=== PATIENT | male | born 1995 | race Hispanic/Latino ===

== ENCOUNTER 2020-01-14 06:28 | Day surgery (SDC) | payer OTHER ==
[2020-01-08 09:08] LABS: BASOPHILS % (AUTO) 1.3 % (0.0-5.0); EOSINOPHILS % (AUTO) 4.5 % (0.0-8.0); HEMATOCRIT 42.2 % (42-54); LYMPHOCYTES % (AUTO) 41.8 % (21.0-51.0); MEAN CORPUSCULAR HEMOGLOBIN 27.1 pg (27.0-33.0); MEAN CORPUSCULAR HGB CONC 33.4 g/dL (32.0-36.0); MEAN CORPUSCULAR VOLUME 81.2 fL (79-99); MONOCYTES % (AUTO) 8.7 % (3.0-13.0); NEUTROPHILS % (AUTO) 43.5 % (40.0-77.0); PLATELET COUNT (AUTO) 265 K/uL (130-400); RED CELL DISTRIBUTION WIDTH 11.9 % (11.0-15.5); WHITE BLOOD COUNT (AUTO) 5.5 K/uL (4.8-10.8)
[2020-01-08 09:24] LABS: CREATININE 1.2 mg/dL (0.5-1.5); POTASSIUM 4.4 mmol/L (3.5-5.1)
[2020-01-11 13:53] VITALS: BP 117/68
[2020-01-14] VITALS (17 sets, daily range): BP systolic 99–135; BP diastolic 43–82
[~2020-01-14] VITALS: Ht 179.1 cm; Wt 96.2 kg
[~2020-01-14 06:28] MED LIST: ACET-2247 PO; CEFAZOLIN SODIUM 1 GM VIAL IVP SCH; NAPR-1174 PO
[2020-01-14] MEDS ORDERED: LACTATED RINGERS 1000ML 1,000 ML IV ONE (07:43)
[2020-01-14] MEDS ORDERED: CEFAZOLIN SODIUM 1 GM VIAL ONE (08:08)
[2020-01-14] MEDS ORDERED: ONDANSETRON HCL 4 MG/2 ML VIAL ONE ×2 (08:41→10:15)
[2020-01-14] MEDS ORDERED: SUCCINYLCHOLINE CHLORIDE 20 MG/ML 10 ML VIAL ONE (08:41)
[2020-01-14] MEDS ORDERED: LIDOCAINE PF 2% 5ML ABBOJECT ONE (08:41)
[2020-01-14] MEDS ORDERED: DEXAMETHASONE SOD PHOSPHATE 10MG/ML 1ML VIAL ONE ×2 (08:41→10:14)
[2020-01-14] MEDS ORDERED: NEOSTIGMINE 5MG/5ML SYR IV ONE (08:42)
[2020-01-14] MEDS ORDERED: GLYCOPYRROLATE 1 MG/5 ML SYRINGE ONE (08:42)
[2020-01-14] MEDS ORDERED: PROPOFOL 10 MG/ML 20ML VIAL IV ONE (08:42)
[2020-01-14] MEDS ORDERED: ROCURONIUM 10MG/1ML SYR 10 MG/ML ML ONE (08:42)
[2020-01-14] MEDS ORDERED: MIDAZOLAM HCL 1 MG/ML 2ML VIAL ONE (08:42)
[2020-01-14] MEDS ORDERED: FENTANYL CITRATE PF 50 MCG/1 ML 2ML VIAL ONE ×2 (08:43→12:15)
[2020-01-14] MEDS ORDERED: ROPIVACAINE 0.5% 5MG/ML 30ML IJ ONE ×2 (09:14→09:15)
[2020-01-14] MEDS ORDERED: IBUP-2070 PO (12:36)
[2020-01-14] MEDS ORDERED: HYDR-4457 PO (12:36)
[2020-01-14] MEDS ORDERED: CEPH-578 PO (12:36)
[2020-01-14] MEDS ORDERED: MEPERIDINE-PF 25 MG/ML SYG ONE (13:00)
--- NOTE | 2020-01-14 13:40 | NUR ---
POST OP RECEIVED PT BACK FROM PACU. S/P RIGHT KNEE ACL. PT AWAKE AND ALERT,NO DISTRESS NOTED. VS STABLE. PLAN OF CARE DISCUSS WITH PATIENT. NEUROVASCULAR CHECKS WNL. . CALL LIGHT WITHIN REACH
--- NOTE | 2020-01-14 14:15 | NUR ---
dc pt dc home via wc, no distress noted. pt denied any pain or discomforts. pt has cruthes from home already . dc intructions reinforced at this time with pt and mom, prescriptions x 3 given to pts mom. right knee dressing dry and intact, neurovascular checks wnl.
== END 2020-01-14 14:15 | disposition home or self-care (01) ==
LOC: DAH 06:28
PROVIDERS: ATTEND Orthopaedic Surgery
DX: S83.511A Sprain of anterior cruciate ligament of right knee, initial encounter (principal); Z20.828 Contact with and (suspected) exposure to other viral communicable diseases; S83.241A Other tear of medial meniscus, current injury, right knee, initial encounter; S83.281A Other tear of lateral meniscus, current injury, right knee, initial encounter; M62.559 Muscle wasting and atrophy, not elsewhere classified, unspecified thigh; M25.361 Other instability, right knee; Z82.49 Family history of ischemic heart disease and other diseases of the circulatory system; Z99.89 Dependence on other enabling machines and devices; X58.XXXA Exposure to other specified factors, initial encounter
CPT/HCPCS: 29882; 29888; 36415; 64445; 64447; 76942; 80048; 85025; A4215; A4222; A4223; A4649 ×6; A4663; A4930 ×2; A6223; C1713; C1762; C9803; J0330; J0690 ×2; J1100 ×2; J2001; J2175; J2250; J2405 ×2; J2704; J2710; J2795 ×2; J3010 ×2; J3490; J7030; J7120; U0003